=== PATIENT | female | born 1930 | race Caucasian/White ===

== ENCOUNTER 2018-12-21 09:52 | Day surgery (SDC) | payer MEDICARE, BC ==
[2018-12-20 11:01] LABS: ALBUMIN 3.1 G/DL (3.4-5.0); ANION GAP 6 (8-16); BLOOD UREA NITROGEN 14 MG/DL (7-18); BUN/CREATININE RATIO 18.9 (6.6-38.0); CALCIUM 9.1 MG/DL (8.5-10.1); CHLORIDE 99 MMOL/L (99-107); CREATININE 0.74 MG/DL (0.40-0.90); GLUCOSE 96 MG/DL (70-104); POTASSIUM 3.8 MMOL/L (3.5-5.1); SODIUM 135 MMOL/L (135-145); TOTAL CARBON DIOXIDE 29.8 MMOL/L (24-32); eGFR 74 ML/MIN
[2018-12-20 11:03] LABS: BASOPHILS # (AUTO) 0.1 X10'3 (0-0.2); BASOPHILS % (AUTO) 0.6 % (0-1); EOSINOPHILS # (AUTO) 0.2 X10'3 (0-0.9); EOSINOPHILS % (AUTO) 1.4 % (0-6); HEMATOCRIT 39.5 % (35.0-45.0); HEMOGLOBIN 13.1 g/dl (12.0-16.0); LYMPHOCYTES # (AUTO) 2.4 X10'3 (1.1-4.8); MEAN CORPUSCULAR HEMOGLOBIN 30.8 PG (27.0-31.0); MEAN CORPUSCULAR HGB CONC 33.2 g/dL (33.0-36.5); MEAN CORPUSCULAR VOLUME 92.6 FL (78-98); MEAN PLATELET VOLUME 7.3 FL (7.4-10.4); MONOCYTES # (AUTO) 0.8 X10'3 (0-0.9); MONOCYTES % (AUTO) 7.2 % (2-12); NEUTROPHILS # (AUTO) 7.4 X10'3 (1.8-7.7); NEUTROPHILS % (AUTO) 68.8 % (42-75); PLATELET COUNT 407 X10'3 (140-440); RED BLOOD COUNT 4.27 X10'6 (4.20-5.60); RED CELL DISTRIBUTION WIDTH 15.3 % (11.5-14.5); WHITE BLOOD COUNT 10.8 X10'3 (4.5-11.0)
[2018-12-20 11:16] LABS: PARTIAL THROMBOPLASTIN TIME 28 SECONDS (22-32); PROTHROMBIN TIME 10.2 SECONDS (9.0-12.0)
[2018-12-21] VITALS (10 sets, daily range): BP systolic 106–160; BP diastolic 45–72
[~2018-12-21] VITALS: Ht 157.5 cm; Wt 51.5 kg
[~2018-12-21 09:52] MED LIST: APIX5TAB3 PO; AZIT500T5 PO; BENZ-49 PO
[2018-12-21] MEDS ORDERED: cefazolin/dext.iso 2gm/100ml 100 ML IV ONE (10:30)
[2018-12-21] MEDS ORDERED: normal saline 1000ml 1,000 ML IV SCH (10:30)
[2018-12-21] MEDS ORDERED: ARFO15VI3 NEB (11:25)
[2018-12-21] MEDS ORDERED: OMEP20CA10 PO (11:25)
[2018-12-21] MEDS ORDERED: ENZY1CAP5 PO (11:25)
[2018-12-21] MEDS ORDERED: LEVO75TA7 PO (11:25)
[2018-12-21] MEDS ORDERED: ESTR0.5T PO (11:25)
[2018-12-21] MEDS ORDERED: CYAN-19 PO (11:25)
[2018-12-21] MEDS ORDERED: MELA1TAB25 PO (11:25)
[2018-12-21] MEDS ORDERED: SOTA80TA73 PO (11:25)
[2018-12-21] MEDS ORDERED: CLOP75TA33 PO (11:25)
[2018-12-21] MEDS ORDERED: OMEG-86 PO (11:25)
[2018-12-21] MEDS ORDERED: CALC1TAB2 PO (11:25)
[2018-12-21] MEDS ORDERED: MULT1TAB74 PO (11:25)
[2018-12-21] MEDS ORDERED: CRAN200C PO (11:25)
[2018-12-21] MEDS ORDERED: PROM25TA14 PO (11:34)
[2018-12-21] MEDS ORDERED: APIX5TAB3 PO ×2 (11:34→11:41)
[2018-12-21] MEDS ORDERED: lidocaine 1%/epinephrine 1:100,000 injection 50ml vial ONE (12:08)
[2018-12-21] MEDS ORDERED: fentaNYL/PF 50MCG/1 ML 2ML syringe ONE (12:08)
[2018-12-21] MEDS ORDERED: midazolam 2 mg/2 ml injection ONE (12:08)
[2018-12-21] MEDS ORDERED: ceFAZolin 1GM/D5W- ADD-VANTAGE 50 ML IV ONE (12:28)
[2018-12-21] MEDS ORDERED: ceFAZolin 1000mg inj ONE (12:28)
[2018-12-21] MEDS ORDERED: HYDROcodone/acetaminophen 10/325mg tab PO PRN (14:15)
[2018-12-21] MEDS ORDERED: HYDROcodone/acetaminophen 5mg/325mg tablet PO PRN (14:15)
== END 2018-12-21 19:00 | disposition home or self-care (01) ==
LOC: SSTAY O 09:52
PROVIDERS: ATTEND Internal Medicine Cardiovascular Disease
DX: I49.5 Sick sinus syndrome (principal); I48.0 Paroxysmal atrial fibrillation; I44.1 Atrioventricular block, second degree; R53.83 Other fatigue; R55 Syncope and collapse; Z98.890 Other specified postprocedural states
CPT/HCPCS: 33208; 36415; 71046; 80048; 85025; 85610; 85730; 93005; A6449; C1785; C1898; J0690; J2250; J3010; J3490; J7030; 99152; 99153; A4565; A4620

== ENCOUNTER 2018-12-25 10:23 | Outpatient (CLI) | payer MEDICARE, BC ==
[~2018-12-25 10:23] MED LIST changes: +ARFO15VI3 NEB; -AZIT500T5 PO; -BENZ-49 PO; +CALC1TAB2 PO; +CLOP75TA33 PO; +CRAN200C PO; +CYAN-19 PO; +ENZY1CAP5 PO; +ESTR0.5T PO; +LEVO75TA7 PO; +MELA1TAB25 PO; +MULT1TAB74 PO; +OMEG-86 PO; +OMEP20CA10 PO; +PROM25TA14 PO; +SOTA80TA73 PO
== END 2018-12-25 23:59 | disposition home or self-care (01) ==
LOC: RAD 10:23
PROVIDERS: ATTEND Internal Medicine Cardiovascular Disease
DX: J98.4 Other disorders of lung (principal); M85.88 Other specified disorders of bone density and structure, other site; J45.909 Unspecified asthma, uncomplicated; E07.9 Disorder of thyroid, unspecified; Z79.899 Other long term (current) drug therapy; Z87.891 Personal history of nicotine dependence; Z90.710 Acquired absence of both cervix and uterus
CPT/HCPCS: 71046

== ENCOUNTER 2018-12-29 18:23 | Emergency (ER) | payer MEDICARE, BC ==
[~2018-12-29] VITALS: Ht 160 cm; Wt 50.5 kg
[2018-12-29 19:36] LABS: BASOPHILS # (AUTO) 0.1 X10'3 (0-0.2); BASOPHILS % (AUTO) 1.2 % (0-1); EOSINOPHILS # (AUTO) 0.3 X10'3 (0-0.9); EOSINOPHILS % (AUTO) 2.8 % (0-6); HEMATOCRIT 37.3 % (35.0-45.0); HEMOGLOBIN 12.2 g/dl (12.0-16.0); LYMPHOCYTES # (AUTO) 1.9 X10'3 (1.1-4.8); LYMPHOCYTES % (AUTO) 21.2 % (21-51); MEAN CORPUSCULAR HEMOGLOBIN 30.3 PG (27.0-31.0); MEAN CORPUSCULAR HGB CONC 32.6 g/dL (33.0-36.5); MEAN CORPUSCULAR VOLUME 93.1 FL (78-98); MEAN PLATELET VOLUME 6.9 FL (7.4-10.4); MONOCYTES # (AUTO) 0.8 X10'3 (0-0.9); MONOCYTES % (AUTO) 8.8 % (2-12); PLATELET COUNT 395 X10'3 (140-440); RED BLOOD COUNT 4.01 X10'6 (4.20-5.60); RED CELL DISTRIBUTION WIDTH 14.7 % (11.5-14.5); WHITE BLOOD COUNT 9.1 X10'3 (4.5-11.0)
[2018-12-29 19:54] LABS: PARTIAL THROMBOPLASTIN TIME 29 SECONDS (22-32); PROTHROMBIN TIME 10.3 SECONDS (9.0-12.0)
[2018-12-29 19:56] LABS: CLARITY,URINE CLEAR (Clear); COLOR,URINE YELLOW (Yellow); GLUCOSE, URINE NEGATIVE (Neg); KETONES,URINE NEGATIVE (Neg); LEUKOCYTE ESTERASE ,URINE NEGATIVE (Neg); NITRITES, URINE NEGATIVE (Neg); OCCULT BLOOD,URINE TRACE-INTACT (Neg); PROTEIN,URINE NEGATIVE (Neg); UROBILINOGEN,URINE 0.2 E.U/dL (0.2-1.0)
[2018-12-29 19:56] LABS: ALANINE AMINOTRANSFERASE 14 U/L (12-78); ALBUMIN 2.8 G/DL (3.4-5.0); ALBUMIN/GLOBULIN RATIO 0.5 (1.1-1.5); ALKALINE PHOSPHATASE 70 IU/L (46-116); ANION GAP 6 (8-16); ASPARTATE AMINO TRANSFERASE 23 U/L (10-37); BILIRUBIN,TOTAL 0.2 MG/DL (0.1-1.0); BLOOD UREA NITROGEN 16 MG/DL (7-18); BUN/CREATININE RATIO 21.6 (6.6-38.0); CALCIUM 9.1 MG/DL (8.5-10.1); CHLORIDE 101 MMOL/L (99-107); CREATININE 0.74 MG/DL (0.40-0.90); GLUCOSE 122 MG/DL (70-104); POTASSIUM 4.3 MMOL/L (3.5-5.1); SODIUM 134 MMOL/L (135-145); TOTAL CARBON DIOXIDE 26.8 MMOL/L (24-32); eGFR 74 ML/MIN
[2018-12-29 20:02] LABS: UA COLLECTION TYPE CLN CATCH MIDSTREAM
[2018-12-29 20:03] LABS: BACTERIA,URINE NONE SEEN /HPF (Neg); RBC,URINE 0-2 /HPF (0-2); SQUAMOUS EPITHELIAL CELL,UR FEW /LPF (FEW); WBC,URINE NONE SEEN /HPF (0-4)
[2018-12-29] MEDS ORDERED: acetaminophen 325mg tablet PO ONE (20:20)
[2018-12-29] MEDS ORDERED: AZIT-72 PO (20:28)
[2018-12-29] MEDS ORDERED: azithromycin 250mg tablet PO ONE (20:30)
[2018-12-29 21:07] VITALS: BP 113/92
== END 2018-12-29 21:09 | disposition home or self-care (01) ==
LOC: ER 18:24
DX: J47.9 Bronchiectasis, uncomplicated (principal); R51 Headache; I48.91 Unspecified atrial fibrillation; Z95.0 Presence of cardiac pacemaker; Z86.73 Personal history of transient ischemic attack (TIA), and cerebral infarction without residual deficits; Z90.710 Acquired absence of both cervix and uterus; Z88.6 Allergy status to analgesic agent; Z88.8 Allergy status to other drugs, medicaments and biological substances; Z79.899 Other long term (current) drug therapy
CPT/HCPCS: 36415; 71045; 80053; 81001; 83605; 84145; 85025; 85610; 85730; 87040; 93005; 99284

== ENCOUNTER 2019-04-07 12:53 | Emergency (ER) | payer MEDICARE, BC ==
[~2019-04-07] VITALS: Ht 160 cm; Wt 48.0 kg
[~2019-04-07 12:53] MED LIST changes: -CYAN-19 PO; +CYAN-51 PO; -OMEP20CA10 PO; +OMEP20CA11 PO
[2019-04-07 14:01] LABS: BASOPHILS # (AUTO) 0.1 X10'3 (0-0.2); EOSINOPHILS # (AUTO) 0.3 X10'3 (0-0.9); EOSINOPHILS % (AUTO) 5.1 % (0-6); HEMATOCRIT 38.5 % (35.0-45.0); HEMOGLOBIN 12.9 g/dl (12.0-16.0); LYMPHOCYTES # (AUTO) 0.9 X10'3 (1.1-4.8); LYMPHOCYTES % (AUTO) 14.5 % (21-51); MEAN CORPUSCULAR HEMOGLOBIN 31.4 PG (27.0-31.0); MEAN CORPUSCULAR HGB CONC 33.5 g/dL (33.0-36.5); MEAN CORPUSCULAR VOLUME 93.7 FL (78-98); MONOCYTES # (AUTO) 0.5 X10'3 (0-0.9); MONOCYTES % (AUTO) 8.4 % (2-12); NEUTROPHILS # (AUTO) 4.6 X10'3 (1.8-7.7); PLATELET COUNT 259 X10'3 (140-440); RED BLOOD COUNT 4.11 X10'6 (4.20-5.60); WHITE BLOOD COUNT 6.5 X10'3 (4.5-11.0)
[2019-04-07 14:06] LABS: PARTIAL THROMBOPLASTIN TIME 27 SECONDS (22-32)
[2019-04-07 14:07] LABS: ALANINE AMINOTRANSFERASE 30 U/L (12-78); ALBUMIN 3.1 G/DL (3.4-5.0); ALBUMIN/GLOBULIN RATIO 0.6 (1.1-1.5); ALKALINE PHOSPHATASE 75 IU/L (46-116); ANION GAP 6 (8-16); ASPARTATE AMINO TRANSFERASE 24 U/L (10-37); BILIRUBIN,TOTAL 0.3 MG/DL (0.1-1.0); BLOOD UREA NITROGEN 22 MG/DL (7-18); BUN/CREATININE RATIO 25.6 (6.6-38.0); CHLORIDE 94 MMOL/L (99-107); CREATININE 0.86 MG/DL (0.40-0.90); GLUCOSE 112 MG/DL (70-104); POTASSIUM 4.9 MMOL/L (3.5-5.1); SODIUM 129 MMOL/L (135-145); TOTAL CARBON DIOXIDE 29.2 MMOL/L (24-32); TOTAL PROTEIN 8.1 G/DL (6.4-8.2); eGFR 63 ML/MIN
[2019-04-07] MEDS ORDERED: normal saline 1000ML IV soln IVB ONE (14:35)
[2019-04-07 15:15] LABS: CLARITY,URINE CLEAR (Clear); COLOR,URINE YELLOW (Yellow); GLUCOSE, URINE NEGATIVE (Neg); KETONES,URINE NEGATIVE (Neg); LEUKOCYTE ESTERASE ,URINE NEGATIVE (Neg); NITRITES, URINE NEGATIVE (Neg); OCCULT BLOOD,URINE TRACE-INTACT (Neg); PROTEIN,URINE NEGATIVE (Neg); UROBILINOGEN,URINE 0.2 E.U/dL (0.2-1.0)
[2019-04-07 15:16] LABS: UA COLLECTION TYPE STRAIGHT CATH
[2019-04-07 15:38] LABS: BACTERIA,URINE NONE SEEN /HPF (Neg); MUCUS STRANDS FEW /LPF (Neg); RBC,URINE NONE SEEN /HPF (0-2); SQUAMOUS EPITHELIAL CELL,UR NONE SEEN /LPF (FEW); WBC,URINE NONE SEEN /HPF (0-4)
[2019-04-07 16:14] VITALS: BP 125/74
== END 2019-04-07 16:15 | disposition home or self-care (01) ==
LOC: ER 12:53
DX: R53.1 Weakness (principal); I48.91 Unspecified atrial fibrillation; I11.0 Hypertensive heart disease with heart failure; I50.9 Heart failure, unspecified; Z86.73 Personal history of transient ischemic attack (TIA), and cerebral infarction without residual deficits; Z90.710 Acquired absence of both cervix and uterus; Z95.0 Presence of cardiac pacemaker; Z88.6 Allergy status to analgesic agent; Z88.1 Allergy status to other antibiotic agents; Z88.8 Allergy status to other drugs, medicaments and biological substances; Z79.899 Other long term (current) drug therapy
CPT/HCPCS: 36415; 71045; 80053; 81001; 84484; 85025; 85610; 85730; 93005; 99284; J7030; P9612

== ENCOUNTER 2019-04-19 06:00 | Day surgery (SDC) | payer MEDICARE, BC ==
[2019-04-18 16:54] LABS: ALBUMIN 2.9 G/DL (3.4-5.0); ANION GAP 5 (8-16); BLOOD UREA NITROGEN 26 MG/DL (7-18); BUN/CREATININE RATIO 28.3 (6.6-38.0); CHLORIDE 95 MMOL/L (99-107); CREATININE 0.92 MG/DL (0.40-0.90); GLUCOSE 102 MG/DL (70-104); POTASSIUM 4.5 MMOL/L (3.5-5.1); SODIUM 129 MMOL/L (135-145); TOTAL CARBON DIOXIDE 28.9 MMOL/L (24-32); eGFR 58 ML/MIN
[2019-04-18 16:56] LABS: BASOPHILS # (AUTO) 0.1 X10'3 (0-0.2); BASOPHILS % (AUTO) 1.4 % (0-1); EOSINOPHILS # (AUTO) 0.1 X10'3 (0-0.9); EOSINOPHILS % (AUTO) 2.1 % (0-6); HEMATOCRIT 36.5 % (35.0-45.0); LYMPHOCYTES # (AUTO) 1.9 X10'3 (1.1-4.8); LYMPHOCYTES % (AUTO) 28.8 % (21-51); MEAN CORPUSCULAR HEMOGLOBIN 30.8 PG (27.0-31.0); MEAN CORPUSCULAR VOLUME 93.5 FL (78-98); MEAN PLATELET VOLUME 6.8 FL (7.4-10.4); MONOCYTES # (AUTO) 0.5 X10'3 (0-0.9); MONOCYTES % (AUTO) 7.8 % (2-12); NEUTROPHILS # (AUTO) 3.9 X10'3 (1.8-7.7); NEUTROPHILS % (AUTO) 59.9 % (42-75); PLATELET COUNT 298 X10'3 (140-440); RED CELL DISTRIBUTION WIDTH 14.8 % (11.5-14.5); WHITE BLOOD COUNT 6.5 X10'3 (4.5-11.0)
[2019-04-18 16:57] LABS: PARTIAL THROMBOPLASTIN TIME 25 SECONDS (22-32)
[2019-04-19] VITALS (13 sets, daily range): BP systolic 97–122; BP diastolic 51–65
[~2019-04-19] VITALS: Ht 157.5 cm; Wt 49.7 kg
[2019-04-19] MEDS ORDERED: nitroGLYCERIN-Tridil 50MG/D5W 250 ML IV ONE (07:34)
[2019-04-19] MEDS ORDERED: verapamil 2.5 mg/ml inj IV ONE (07:34)
[2019-04-19] MEDS ORDERED: LIDOcaine 1% (10mg/ml)w/preservative injection 20ml MDV ONE (07:35)
[2019-04-19] MEDS ORDERED: fentaNYL/PF 50MCG/1 ML 2ML syringe ONE (07:35)
[2019-04-19] MEDS ORDERED: iohexol 350 MG/ML 50ML vial IV ONE (07:35)
[2019-04-19] MEDS ORDERED: midazolam 2 mg/2 ml injection ONE (07:35)
[2019-04-19] MEDS ORDERED: LEVO100T PO (07:35)
[2019-04-19] MEDS ORDERED: heparin 1,000unit/ml 10ml vial 10 ML ONE (07:35)
[2019-04-19] MEDS ORDERED: iohexol 350MG/ML 100ml bottle IV ONE ×2 (07:35→08:47)
[2019-04-19] MEDS ORDERED: CITA20TA19 PO (07:38)
[2019-04-19] MEDS ORDERED: GUAI600T45 PO (07:42)
[2019-04-19] MEDS ORDERED: AMIO200T54 PO (07:44)
[2019-04-19] MEDS ORDERED: FURO-150 PO (07:45)
[2019-04-19] MEDS ORDERED: CARV-49 PO (07:45)
[2019-04-19] MEDS ORDERED: LISI2.5T2 PO (07:46)
[2019-04-19] MEDS ORDERED: MAGN500C16 PO (07:47)
[2019-04-19] MEDS ORDERED: FLUT1DIS INH (07:47)
[2019-04-19] MEDS ORDERED: SPIR25TA5 PO (07:48)
[2019-04-19] MEDS ORDERED: heparin 25,000 UNIT/250ml bag 250 ML IV ONE (08:46)
[2019-04-19] MEDS ORDERED: ticagrelor 90mg tablet ONE (09:03)
[2019-04-19] MEDS ORDERED: clopidogrel 300mg tablet ONE (09:10)
[2019-04-19] MEDS ORDERED: acetaminophen 325mg tablet PO PRN (14:30)
== END 2019-04-19 17:00 | disposition home or self-care (01) ==
LOC: SSTAY O 06:00
PROVIDERS: ATTEND Internal Medicine Cardiovascular Disease
DX: I25.10 Atherosclerotic heart disease of native coronary artery without angina pectoris (principal); I42.9 Cardiomyopathy, unspecified; I49.5 Sick sinus syndrome; I48.91 Unspecified atrial fibrillation; E78.5 Hyperlipidemia, unspecified; Z95.0 Presence of cardiac pacemaker
CPT/HCPCS: 36415; 80048; 85025; 85347; 85610; 85730; 93005; 93458; 99152; 99153; C1725; C1769; C1874; C1894; C9600; J1644; J2001; J2250; J3010; Q9967; A4620; A6258; J3490

== ENCOUNTER 2019-05-06 20:14 | Emergency (ER) | payer MEDICARE, BC ==
[~2019-05-06] VITALS: Ht 157.5 cm; Wt 49.2 kg
[~2019-05-06 20:14] MED LIST changes: +AMIO200T54 PO; -ARFO15VI3 NEB; -CALC1TAB2 PO; +CARV-49 PO; +CITA20TA19 PO; -CLOP75TA33 PO; -CRAN200C PO; -CYAN-51 PO; -ENZY1CAP5 PO; -ESTR0.5T PO; +FLUT1DIS INH; +FURO-150 PO; +GUAI600T45 PO; +LEVO100T PO; -LEVO75TA7 PO; +LISI2.5T2 PO; +MAGN500C16 PO; -OMEG-86 PO; -OMEP20CA11 PO; -PROM25TA14 PO; -SOTA80TA73 PO; +SPIR25TA5 PO
[2019-05-06 20:18] VITALS: BP 126/66
[2019-05-06] MEDS ORDERED: LIDOcaine 1% w/epiNEPHrine 1:200,000 30ml vial IM ONE (20:30)
[2019-05-06] MEDS ORDERED: tranexamic acid 100mg/ml inj. TP ONE (20:30)
[2019-05-06] MEDS ORDERED: TETanus/Pertussis (Acell)/Diphther VAC/PF (Tdap-Adult) 0.5ml syringe IM ONE (20:30)
== END 2019-05-06 21:13 | disposition home or self-care (01) ==
LOC: ER 20:14
DX: S01.512A Laceration without foreign body of oral cavity, initial encounter (principal); I11.0 Hypertensive heart disease with heart failure; I50.9 Heart failure, unspecified; I48.91 Unspecified atrial fibrillation; Z86.73 Personal history of transient ischemic attack (TIA), and cerebral infarction without residual deficits; Z90.710 Acquired absence of both cervix and uterus; Z95.0 Presence of cardiac pacemaker; Z88.1 Allergy status to other antibiotic agents; Z88.6 Allergy status to analgesic agent; Z88.8 Allergy status to other drugs, medicaments and biological substances; Z79.899 Other long term (current) drug therapy; X58.XXXA Exposure to other specified factors, initial encounter; Y93.89 Activity, other specified; Y92.89 Other specified places as the place of occurrence of the external cause; Y99.8 Other external cause status
CPT/HCPCS: 41250; 99284

== ENCOUNTER 2020-01-12 13:14 | Emergency (ER) | payer MEDICARE, BC ==
[~2020-01-12] VITALS: Ht 157.5 cm; Wt 48.6 kg
[~2020-01-12 13:14] MED LIST changes: -AMIO200T54 PO; +AMIO200T62 PO
[2020-01-12] MEDS ORDERED: normal saline 1000ML IV soln IVB ONE (13:20)
[2020-01-12 14:20] LABS: BASOPHILS # (AUTO) 0.1 X10'3 (0-0.2); BASOPHILS % (AUTO) 0.8 % (0-1); EOSINOPHILS # (AUTO) 0.1 X10'3 (0-0.9); EOSINOPHILS % (AUTO) 1.6 % (0-6); HEMATOCRIT 36.9 % (35.0-45.0); LYMPHOCYTES # (AUTO) 1.6 X10'3 (1.1-4.8); LYMPHOCYTES % (AUTO) 22.3 % (21-51); MEAN CORPUSCULAR HEMOGLOBIN 29.8 PG (27.0-31.0); MEAN CORPUSCULAR HGB CONC 32.5 g/dL (33.0-36.5); MEAN CORPUSCULAR VOLUME 91.6 FL (78-98); MEAN PLATELET VOLUME 6.9 FL (7.4-10.4); MONOCYTES # (AUTO) 0.5 X10'3 (0-0.9); MONOCYTES % (AUTO) 6.9 % (2-12); NEUTROPHILS # (AUTO) 4.8 X10'3 (1.8-7.7); NEUTROPHILS % (AUTO) 68.4 % (42-75); PLATELET COUNT 384 X10'3 (140-440); RED BLOOD COUNT 4.02 X10'6 (4.20-5.60); RED CELL DISTRIBUTION WIDTH 15.4 % (11.5-14.5)
[2020-01-12] MEDS ORDERED: HYDROcodone/acetaminophen 5mg/325mg tablet PO ONE (14:30)
[2020-01-12 14:33] LABS: ALANINE AMINOTRANSFERASE 40 U/L (12-78); ALBUMIN 3.3 G/DL (3.4-5.0); ALBUMIN/GLOBULIN RATIO 0.7 (1.1-1.5); ALKALINE PHOSPHATASE 85 IU/L (46-116); ANION GAP 5 (8-16); ASPARTATE AMINO TRANSFERASE 41 U/L (10-37); BILIRUBIN,TOTAL 0.3 MG/DL (0.1-1.0); CALCIUM 8.9 MG/DL (8.5-10.1); CHLORIDE 103 MMOL/L (99-107); CREATININE 0.93 MG/DL (0.40-0.90); GLUCOSE 94 MG/DL (70-104); POTASSIUM 4.4 MMOL/L (3.5-5.1); SODIUM 136 MMOL/L (135-145); TOTAL CARBON DIOXIDE 28.4 MMOL/L (24-32); TOTAL PROTEIN 8.3 G/DL (6.4-8.2); eGFR 57 ML/MIN
[2020-01-12 14:40] LABS: BLOOD UREA NITROGEN 20 MG/DL (7-18); BUN/CREATININE RATIO 21.5 (6.6-38.0)
[2020-01-12 14:40] LABS: CLARITY,URINE CLEAR (Clear); COLOR,URINE YELLOW (Yellow); GLUCOSE, URINE NEGATIVE (Neg); KETONES,URINE NEGATIVE (Neg); LEUKOCYTE ESTERASE ,URINE NEGATIVE (Neg); NITRITES, URINE NEGATIVE (Neg); OCCULT BLOOD,URINE NEGATIVE (Neg); PROTEIN,URINE NEGATIVE (Neg); UROBILINOGEN,URINE 0.2 E.U/dL (0.2-1.0)
[2020-01-12 14:41] LABS: UA COLLECTION TYPE STRAIGHT CATH
[2020-01-12] MEDS ORDERED: HYDR-4383 PO (14:59)
[2020-01-12 15:21] VITALS: BP 161/81
== END 2020-01-12 15:12 | disposition home or self-care (01) ==
LOC: ER 13:14
DX: S00.11XA Contusion of right eyelid and periocular area, initial encounter (principal); M54.5 Low back pain; M25.551 Pain in right hip; I48.91 Unspecified atrial fibrillation; I50.9 Heart failure, unspecified; I11.0 Hypertensive heart disease with heart failure; Z90.710 Acquired absence of both cervix and uterus; Z95.0 Presence of cardiac pacemaker; Z88.5 Allergy status to narcotic agent; Z88.2 Allergy status to sulfonamides; Z88.8 Allergy status to other drugs, medicaments and biological substances; Z79.01 Long term (current) use of anticoagulants; Z79.899 Other long term (current) drug therapy; W18.39XA Other fall on same level, initial encounter; Y93.89 Activity, other specified; Y92.008 Other place in unspecified non-institutional (private) residence as the place of occurrence of the external cause; Y99.8 Other external cause status
CPT/HCPCS: 36415; 70450; 70486; 72131; 72192; 80053; 81003; 85025; 93005; 99285; J7030

== ENCOUNTER 2020-02-08 07:29 | Emergency (ER) | payer MEDICARE, BC ==
[~2020-02-08] VITALS: Ht 157.5 cm; Wt 50.0 kg
[~2020-02-08 07:29] MED LIST changes: +HYDR-4383 PO
--- NOTE | 2020-02-08 08:17 | NUR ---
Discussed pt's c/o pain with little relief from ice pack application with jennifer Alvarez;new orders received for Enterprise 5/325mg PO.
[2020-02-08] MEDS ORDERED: HYDROcodone/acetaminophen 5mg/325mg tablet PO ONE (08:20)
--- NOTE | 2020-02-08 08:43 | NUR ---
pt assisted to bsc
[2020-02-08 09:34] VITALS: BP 134/67
[2020-02-08] MEDS ORDERED: HYDR-4383 PO (09:40)
== END 2020-02-08 10:21 | disposition home or self-care (01) ==
LOC: ER 07:30
DX: M54.5 Low back pain (principal); I48.91 Unspecified atrial fibrillation; I50.9 Heart failure, unspecified; I11.0 Hypertensive heart disease with heart failure; G89.29 Other chronic pain; Z86.73 Personal history of transient ischemic attack (TIA), and cerebral infarction without residual deficits; Z90.710 Acquired absence of both cervix and uterus; Z95.0 Presence of cardiac pacemaker; Z88.1 Allergy status to other antibiotic agents; Z88.5 Allergy status to narcotic agent; Z88.8 Allergy status to other drugs, medicaments and biological substances; Z79.01 Long term (current) use of anticoagulants; Z79.899 Other long term (current) drug therapy
CPT/HCPCS: 99284

== ENCOUNTER 2020-04-04 08:43 | Inpatient (IN) | payer MEDICARE, BC ==
[~2020-04-04] VITALS: Ht 157.5 cm; Wt 47.7 kg
[~2020-04-04 08:43] MED LIST changes: +MULT-620 PO; -MULT1TAB74 PO
[2020-04-04] MEDS ORDERED: normal saline 1000ML IV soln IV ONE (09:20)
--- NOTE | 2020-04-04 09:32 | NUR ---
FOSTER GARNER PHONE NUMBER [phone]
[2020-04-04 09:35] LABS: ALANINE AMINOTRANSFERASE 243 U/L (12-78); ALBUMIN 2.6 G/DL (3.4-5.0); ALBUMIN/GLOBULIN RATIO 0.6 (1.1-1.5); ALKALINE PHOSPHATASE 121 IU/L (46-116); ANION GAP 5 (8-16); ASPARTATE AMINO TRANSFERASE 200 U/L (10-37); BILIRUBIN,TOTAL 0.4 MG/DL (0.1-1.0); BLOOD UREA NITROGEN 30 MG/DL (7-18); BUN/CREATININE RATIO 24.6 (6.6-38.0); CALCIUM 8.1 MG/DL (8.5-10.1); CHLORIDE 102 MMOL/L (99-107); CREATININE 1.22 MG/DL (0.40-0.90); GLUCOSE 115 MG/DL (70-104); POTASSIUM 4.6 MMOL/L (3.5-5.1); SODIUM 133 MMOL/L (135-145); TOTAL CARBON DIOXIDE 25.6 MMOL/L (24-32); TOTAL PROTEIN 7.2 G/DL (6.4-8.2); eGFR 42 ML/MIN
[2020-04-04 09:57] LABS: BASOPHILS # (AUTO) 0.1 X10'3 (0-0.2); EOSINOPHILS # (AUTO) 0.1 X10'3 (0-0.9); EOSINOPHILS % (AUTO) 1.3 % (0-6); HEMATOCRIT 30.3 % (35.0-45.0); HEMOGLOBIN 9.7 g/dl (12.0-16.0); LYMPHOCYTES # (AUTO) 1.1 X10'3 (1.1-4.8); LYMPHOCYTES % (AUTO) 18.3 % (21-51); MEAN CORPUSCULAR HEMOGLOBIN 27.3 PG (27.0-31.0); MEAN CORPUSCULAR VOLUME 85.3 FL (78-98); MEAN PLATELET VOLUME 6.6 FL (7.4-10.4); MONOCYTES # (AUTO) 0.5 X10'3 (0-0.9); MONOCYTES % (AUTO) 7.8 % (2-12); NEUTROPHILS # (AUTO) 4.4 X10'3 (1.8-7.7); NEUTROPHILS % (AUTO) 71.6 % (42-75); PLATELET COUNT 379 X10'3 (140-440); RED BLOOD COUNT 3.55 X10'6 (4.20-5.60); RED CELL DISTRIBUTION WIDTH 16.1 % (11.5-14.5); WHITE BLOOD COUNT 6.2 X10'3 (4.5-11.0)
[2020-04-04 10:53] LABS: CLARITY,URINE SLIGHTLY CLOUDY (Clear); COLOR,URINE YELLOW (Yellow); GLUCOSE, URINE NEGATIVE (Neg); KETONES,URINE NEGATIVE (Neg); LEUKOCYTE ESTERASE ,URINE NEGATIVE (Neg); NITRITES, URINE NEGATIVE (Neg); OCCULT BLOOD,URINE NEGATIVE (Neg); PROTEIN,URINE NEGATIVE (Neg); UROBILINOGEN,URINE 0.2 E.U/dL (0.2-1.0)
[2020-04-04 10:55] LABS: UA COLLECTION TYPE CLN CATCH MIDSTREAM
[2020-04-04 11:17] LABS: SQUAMOUS EPITHELIAL CELL,UR FEW /LPF (FEW)
[2020-04-04 11:18] LABS: BACTERIA,URINE 3+ /HPF (Neg); RBC,URINE 0-2 /HPF (0-2)
[2020-04-04] MEDS ORDERED: potassium CL 10mEq/100ml bag 100 ML IV PRN ×2 (12:20)
[2020-04-04] MEDS ORDERED: magnesium Cl slow-release 64mg tablet PO PRN (12:20)
[2020-04-04] MEDS ORDERED: magnesium hydroxide 30ml (MOM) UD suspension PO PRN (12:20)
[2020-04-04] MEDS ORDERED: docusate sod 100mg capsule PO PRN (12:20)
[2020-04-04] MEDS ORDERED: ondansetron/PF 4mg/2ml inj IV PRN (12:20)
[2020-04-04] MEDS ORDERED: potassium Cl 20 mEq SR tablet PO PRN ×2 (12:20)
[2020-04-04] MEDS ORDERED: magnesium 4gm in 100ml NS 100 ML IV PRN (12:20)
[2020-04-04] MEDS ORDERED: magnesium 2GM in 50ml NS 50 ML IV PRN (12:20)
[2020-04-04] MEDS ORDERED: acetaminophen 325mg tablet PO PRN (12:20)
--- NOTE | 2020-04-04 12:34 | NUR ---
MARIOLA DUMONT [phone]
[2020-04-04] MEDS ORDERED: ROSU10TA28 PO (12:48)
[2020-04-04] MEDS ORDERED: CLOP75TA35 PO (12:48)
[2020-04-04] MEDS ORDERED: BUDE0.5A3 PO (12:48)
[2020-04-04] MEDS ORDERED: LORA10TA7 PO (12:48)
[2020-04-04] MEDS ORDERED: CYAN100010 PO (12:51)
[2020-04-04] MEDS ORDERED: CALC-97 PO (12:51)
[2020-04-04] MEDS ORDERED: ASPI-611 PO (12:51)
--- NOTE | 2020-04-04 13:25 | NUR ---
Received report from Joyce WIGIGNS, allowed time to ask questions and assume care. Patient brought up by Carlito WIGGINS. 2 RN skin check completed. MRSA swab completed. VS read: 130/76, 99% on RA, 97.6, 107 HR, 16 Respirations.
[2020-04-04] MEDS: normal saline 1000ml 1,000 ML IV SCH (14:28)
[2020-04-04 15:00] VITALS: BP 131/64
--- NOTE | 2020-04-04 16:50 | NUR ---
notified. PAGER ID: [phone] MESSAGE: Re: Alina Dalton. [phone]. Can patient eat a solid dinner? or would you like her to have clear liquids for possible GI consult tomorrow? Shilpa Linda, #[phone].
[2020-04-04 18:00] VITALS: BP 91/60
--- NOTE | 2020-04-04 18:22 | NUR ---
Problems reprioritized. Patient report given, questions answered & plan of care reviewed with ROSALIE Matson.
--- NOTE | 2020-04-04 18:29 | NUR ---
Patient in room PCU 3017. I have received report from Shilpa WIGGINS and had the opportunity to ask questions and assume patient care.
[2020-04-04 20:00] VITALS: BP_SYST 123; BP_SYST 133; BP_SYST 141; BP_DIAS 55; BP_DIAS 62; BP_DIAS 72
[2020-04-04] MEDS: K and/or MAG REPLACEMENT MC SCH (20:00)
[2020-04-04] MEDS: pantoprazole 40 MG vial IV SCH (20:06)
[2020-04-04] MEDS: temazepam 15mg capsule PO PRN (20:06)
[2020-04-04 22:00] VITALS: BP 113/56
[2020-04-05] VITALS (7 sets, daily range): BP systolic 112–145; BP diastolic 54–75
[2020-04-05] MEDS: normal saline 1000ml 1,000 ML IV SCH ×2 (02:51→16:14)
[2020-04-05 06:02] LABS: BASOPHILS # (AUTO) 0.1 X10'3 (0-0.2); BASOPHILS % (AUTO) 1.1 % (0-1); EOSINOPHILS # (AUTO) 0.2 X10'3 (0-0.9); EOSINOPHILS % (AUTO) 2.5 % (0-6); HEMATOCRIT 28.4 % (35.0-45.0); HEMOGLOBIN 9.2 g/dl (12.0-16.0); LYMPHOCYTES # (AUTO) 1.6 X10'3 (1.1-4.8); LYMPHOCYTES % (AUTO) 23.7 % (21-51); MEAN CORPUSCULAR HEMOGLOBIN 27.4 PG (27.0-31.0); MEAN CORPUSCULAR HGB CONC 32.2 g/dL (33.0-36.5); MEAN CORPUSCULAR VOLUME 85.2 FL (78-98); MEAN PLATELET VOLUME 6.8 FL (7.4-10.4); MONOCYTES # (AUTO) 0.6 X10'3 (0-0.9); MONOCYTES % (AUTO) 8.8 % (2-12); NEUTROPHILS # (AUTO) 4.4 X10'3 (1.8-7.7); NEUTROPHILS % (AUTO) 63.9 % (42-75); PLATELET COUNT 364 X10'3 (140-440); RED BLOOD COUNT 3.34 X10'6 (4.20-5.60); RED CELL DISTRIBUTION WIDTH 15.5 % (11.5-14.5); WHITE BLOOD COUNT 6.9 X10'3 (4.5-11.0)
--- NOTE | 2020-04-05 06:25 | NUR ---
Patient in room PCU 3017. I have received report from Huyen WIGGINS, and had the opportunity to ask questions and assume patient care.
[2020-04-05 06:26] LABS: ALANINE AMINOTRANSFERASE 237 U/L (12-78); ALBUMIN 2.4 G/DL (3.4-5.0); ALBUMIN/GLOBULIN RATIO 0.6 (1.1-1.5); ALKALINE PHOSPHATASE 115 IU/L (46-116); ANION GAP 8 (8-16); ASPARTATE AMINO TRANSFERASE 184 U/L (10-37); BILIRUBIN,TOTAL 0.4 MG/DL (0.1-1.0); BLOOD UREA NITROGEN 19 MG/DL (7-18); CALCIUM 7.8 MG/DL (8.5-10.1); CHLORIDE 110 MMOL/L (99-107); CREATININE 0.95 MG/DL (0.40-0.90); GLUCOSE 80 MG/DL (70-104); POTASSIUM 4.3 MMOL/L (3.5-5.1); SODIUM 141 MMOL/L (135-145); TOTAL CARBON DIOXIDE 23.4 MMOL/L (24-32); TOTAL PROTEIN 6.7 G/DL (6.4-8.2); eGFR 56 ML/MIN
--- NOTE | 2020-04-05 06:32 | NUR ---
Problems reprioritized. Patient report given, questions answered & plan of care reviewed with Shilpa WIGGINS.
[2020-04-05] MEDS: pantoprazole 40 MG vial IV SCH (07:38)
[2020-04-05] MEDS: K and/or MAG REPLACEMENT MC SCH ×2 (08:00→20:00)
[2020-04-05] MEDS: CefTRIAXone inj 2,000 MG in normal saline 100ml IV soln 100 ML IV SCH (08:29)
[2020-04-05] MEDS: acetaminophen 325mg tablet PO PRN ×3 (08:29→20:56)
[2020-04-05 13:44] LABS: % IRON SATURATION 8 % (11-46); IRON 28 UG/DL (49-151); TOTAL IRON BINDING CAPACITY 340 UG/DL (259-388)
--- NOTE | 2020-04-05 14:30 | NUR ---
Problems reprioritized. Patient report given, questions answered & plan of care reviewed with Harrison and Ajith Guzman.
[2020-04-05 14:46] LABS: BASOPHILS # (AUTO) 0.1 X10'3 (0-0.2); BASOPHILS % (AUTO) 1.2 % (0-1); EOSINOPHILS # (AUTO) 0.1 X10'3 (0-0.9); EOSINOPHILS % (AUTO) 1.3 % (0-6); HEMATOCRIT 29.6 % (35.0-45.0); HEMOGLOBIN 9.6 g/dl (12.0-16.0); LYMPHOCYTES # (AUTO) 1.6 X10'3 (1.1-4.8); LYMPHOCYTES % (AUTO) 21.6 % (21-51); MEAN CORPUSCULAR HEMOGLOBIN 27.2 PG (27.0-31.0); MEAN CORPUSCULAR HGB CONC 32.4 g/dL (33.0-36.5); MEAN CORPUSCULAR VOLUME 84.1 FL (78-98); MEAN PLATELET VOLUME 6.5 FL (7.4-10.4); MONOCYTES # (AUTO) 0.6 X10'3 (0-0.9); MONOCYTES % (AUTO) 8.5 % (2-12); NEUTROPHILS # (AUTO) 4.9 X10'3 (1.8-7.7); NEUTROPHILS % (AUTO) 67.4 % (42-75); PLATELET COUNT 370 X10'3 (140-440); RED BLOOD COUNT 3.52 X10'6 (4.20-5.60); RED CELL DISTRIBUTION WIDTH 15.6 % (11.5-14.5); WHITE BLOOD COUNT 7.3 X10'3 (4.5-11.0)
--- NOTE | 2020-04-05 18:35 | NUR ---
Patient in room PCU 3017. I have received report from Harrison WIGGINS and had the opportunity to ask questions and assume patient care.
--- NOTE | 2020-04-05 18:40 | NUR ---
[place]rientee documentation: I have reviewed and agree with all interventions, assessments performed and documented by Thomas WIGGINS.
--- NOTE | 2020-04-05 18:41 | NUR ---
Problems reprioritized. Patient report given, questions answered & plan of care reviewed with Huyen WIGGINS.
[2020-04-05] MEDS ORDERED: budesonide 0.5mg/2ml UD nebule IH SCH (20:00)
[2020-04-05] MEDS: budesonide 0.5mg/2ml UD nebule IH SCH (20:36)
[2020-04-05] MEDS: lactobacillus rhamnosus 10,000 MMU CELLS/CAPSULE PO SCH (20:53)
[2020-04-05] MEDS: carvedilol 6.25mg tablet PO SCH (20:53)
[2020-04-05] MEDS: temazepam 15mg capsule PO PRN (20:54)
[2020-04-05] MEDS ORDERED: atorvastatin 20mg tablet PO SCH (21:00)
[2020-04-05] MEDS ORDERED: MELATONIN 1 MG PO SCH (21:00)
[2020-04-06] VITALS (8 sets, daily range): BP systolic 105–139; BP diastolic 62–72
[2020-04-06 06:15] LABS: BASOPHILS # (AUTO) 0.1 X10'3 (0-0.2); BASOPHILS % (AUTO) 1.1 % (0-1); EOSINOPHILS # (AUTO) 0.2 X10'3 (0-0.9); EOSINOPHILS % (AUTO) 2.6 % (0-6); HEMATOCRIT 30.5 % (35.0-45.0); HEMOGLOBIN 9.7 g/dl (12.0-16.0); LYMPHOCYTES # (AUTO) 1.2 X10'3 (1.1-4.8); LYMPHOCYTES % (AUTO) 17.2 % (21-51); MEAN CORPUSCULAR HGB CONC 31.8 g/dL (33.0-36.5); MEAN CORPUSCULAR VOLUME 84.9 FL (78-98); MEAN PLATELET VOLUME 6.9 FL (7.4-10.4); MONOCYTES # (AUTO) 0.6 X10'3 (0-0.9); MONOCYTES % (AUTO) 8.3 % (2-12); NEUTROPHILS % (AUTO) 70.8 % (42-75); PLATELET COUNT 372 X10'3 (140-440); RED CELL DISTRIBUTION WIDTH 15.8 % (11.5-14.5); WHITE BLOOD COUNT 7.1 X10'3 (4.5-11.0)
[2020-04-06 06:20] LABS: ALANINE AMINOTRANSFERASE 245 U/L (12-78); ALBUMIN 2.4 G/DL (3.4-5.0); ALBUMIN/GLOBULIN RATIO 0.6 (1.1-1.5); ALKALINE PHOSPHATASE 117 IU/L (46-116); ANION GAP 6 (8-16); ASPARTATE AMINO TRANSFERASE 175 U/L (10-37); BILIRUBIN,TOTAL 0.4 MG/DL (0.1-1.0); BLOOD UREA NITROGEN 10 MG/DL (7-18); BUN/CREATININE RATIO 11.8 (6.6-38.0); CALCIUM 8.3 MG/DL (8.5-10.1); CHLORIDE 106 MMOL/L (99-107); CREATININE 0.85 MG/DL (0.40-0.90); GLUCOSE 76 MG/DL (70-104); MAGNESIUM 1.8 MG/DL (1.5-2.4); POTASSIUM 3.7 MMOL/L (3.5-5.1); SODIUM 139 MMOL/L (135-145); TOTAL CARBON DIOXIDE 26.6 MMOL/L (24-32); TOTAL PROTEIN 6.7 G/DL (6.4-8.2); eGFR 63 ML/MIN
--- NOTE | 2020-04-06 06:32 | NUR ---
Problems reprioritized. Patient report given, questions answered & plan of care reviewed with Arielle Marino.
--- NOTE | 2020-04-06 06:35 | NUR ---
Patient in room PCU 3017. I have received report from Huyen WIGGINS and had the opportunity to ask questions and assume patient care.
[2020-04-06] MEDS ORDERED: pantoprazole 40mg Tablet.DR PO SCH (07:30)
[2020-04-06] MEDS: CefTRIAXone inj 2,000 MG in normal saline 100ml IV soln 100 ML IV SCH (07:53)
[2020-04-06] MEDS: normal saline 1000ml 1,000 ML IV SCH (07:53)
[2020-04-06] MEDS: carvedilol 6.25mg tablet PO SCH (07:54)
[2020-04-06] MEDS: lactobacillus rhamnosus 10,000 MMU CELLS/CAPSULE PO SCH (07:55)
[2020-04-06] MEDS: K and/or MAG REPLACEMENT MC SCH (07:56)
[2020-04-06] MEDS ORDERED: loratadine 10mg tablet PO SCH (08:00)
[2020-04-06] MEDS ORDERED: magnesium oxide 400mg tablet PO SCH (08:00)
[2020-04-06] MEDS ORDERED: citalopram 20mg tablet PO SCH (08:00)
[2020-04-06] MEDS ORDERED: lisinopril 2.5mg tablet PO SCH (08:00)
[2020-04-06] MEDS ORDERED: levoTHYROXINE 100mcg tablet PO SCH (08:00)
[2020-04-06] MEDS: budesonide 0.5mg/2ml UD nebule IH SCH (10:26)
--- NOTE | 2020-04-06 11:03 | NUR ---
Memo Camara PAGER ID: [phone] MESSAGE: Patient Sha [phone]. Very anxious wants to leave AMA. Wants to eat. NPO since 0000 for EGD today, is that happening or can I feed her? Please advise. Arielle Maxwell [phone]
--- NOTE | 2020-04-06 11:24 | NUR ---
PAGER ID: [phone] MESSAGE: Patient Sha [phone]. GI lab won't be in today, can I feed her until midnight and she can go NPO at midnight tonight? [facility] [phone]
[2020-04-06] MEDS ORDERED: LIDOcaine Viscous 15ml cup ONE (12:33)
[2020-04-06] MEDS ORDERED: MIDAZolam 5mg/5ml vial ONE (12:33)
[2020-04-06] MEDS ORDERED: fentaNYL/PF 50MCG/1 ML 2ML syringe ONE (12:33)
--- NOTE | 2020-04-06 14:20 | NUR ---
Memo Camara PAGER ID: [phone] MESSAGE: Patient Sha [phone]. Patient finished EDG and is now going AMA. She will f/u with her primary, per patient. Thx. Guzmán [facility] [phone]
--- NOTE | 2020-04-06 14:57 | NUR ---
Patient left AMA. Doctor notified, signed form in chart.
[2020-04-08 13:05] LABS: OCCULT BLOOD STOOL POSITIVE (Neg)
== END 2020-04-06 14:42 | disposition left against medical advice (07) | DRG 377 ==
LOC: ER 08:43 → ED HOLD 12:18 → EDBEDREQ 12:41 → PCU 3S 13:26
PROVIDERS: ADMIT Internal Medicine; ATTEND Internal Medicine
PROC: 0DB78ZX Excision of Stomach, Pylorus, Via Natural or Artificial Opening Endoscopic, Diagnostic (ICD-10-PCS; principal; 2020-04-06)
DX: K92.2 Gastrointestinal hemorrhage, unspecified (principal); N17.0 Acute kidney failure with tubular necrosis; N39.0 Urinary tract infection, site not specified; I50.32 Chronic diastolic (congestive) heart failure; I48.20 Chronic atrial fibrillation, unspecified; G89.4 Chronic pain syndrome; I11.0 Hypertensive heart disease with heart failure; E87.6 Hypokalemia; D64.9 Anemia, unspecified; M54.9 Dorsalgia, unspecified; E03.9 Hypothyroidism, unspecified; I25.10 Atherosclerotic heart disease of native coronary artery without angina pectoris; Z95.0 Presence of cardiac pacemaker; Z88.5 Allergy status to narcotic agent; Z88.6 Allergy status to analgesic agent; Z88.8 Allergy status to other drugs, medicaments and biological substances; Z79.899 Other long term (current) drug therapy; Z79.891 Long term (current) use of opiate analgesic; Z79.82 Long term (current) use of aspirin; Z79.01 Long term (current) use of anticoagulants; Z95.5 Presence of coronary angioplasty implant and graft; Z80.41 Family history of malignant neoplasm of ovary
CPT/HCPCS: 36415; 43239; 43244; 70450; 71045; 76700; 80053; 81001; 82272; 83520; 83540; 83550; 83605; 83735; 83880; 84145; 84443; 84484; 85025; 85379; 85610; 87040; 87077; 87081; 87088; 88305; 88342; 93005; 93306; 93880; 94640; 94760; 97110; 97116; 97162; 99152; 99285; A4620; C9113; G0378; J0696; J2250; J3010; J7030; J7040; J7626

== ENCOUNTER 2020-05-28 15:19 | Emergency (ER) | payer MEDICARE, BC ==
[~2020-05-28] VITALS: Ht 157.5 cm; Wt 46.8 kg
[~2020-05-28 15:19] MED LIST changes: +ASPI-611 PO; +BUDE0.5A3 PO; +CALC-97 PO; +CLOP75TA35 PO; +CYAN100010 PO; -FLUT1DIS INH; -FURO-150 PO; -HYDR-4383 PO; +LORA10TA7 PO; -MULT-620 PO; +ROSU10TA28 PO
[2020-05-28] MEDS ORDERED: normal saline 1000ML IV soln IV ONE (15:30)
[2020-05-28] MEDS ORDERED: pantoprazole IV 80 MG in normal saline 100ml IV soln 100 ML IV ONE (15:30)
[2020-05-28] MEDS ORDERED: pantoprazole 40 MG vial IV ONE ×2 (15:35→15:45)
[2020-05-28 16:08] LABS: BASOPHILS # (AUTO) 0.1 X10'3 (0-0.2); BASOPHILS % (AUTO) 1.3 % (0-1); EOSINOPHILS # (AUTO) 0.1 X10'3 (0-0.9); EOSINOPHILS % (AUTO) 1.4 % (0-6); HEMATOCRIT 32.9 % (35.0-45.0); HEMOGLOBIN 10.6 g/dl (12.0-16.0); LYMPHOCYTES # (AUTO) 1.6 X10'3 (1.1-4.8); LYMPHOCYTES % (AUTO) 19.5 % (21-51); MEAN CORPUSCULAR HEMOGLOBIN 26.9 PG (27.0-31.0); MEAN CORPUSCULAR HGB CONC 32.3 g/dL (33.0-36.5); MEAN CORPUSCULAR VOLUME 83.2 FL (78-98); MEAN PLATELET VOLUME 6.9 FL (7.4-10.4); MONOCYTES # (AUTO) 0.5 X10'3 (0-0.9); MONOCYTES % (AUTO) 6.9 % (2-12); NEUTROPHILS # (AUTO) 5.6 X10'3 (1.8-7.7); NEUTROPHILS % (AUTO) 70.9 % (42-75); PLATELET COUNT 385 X10'3 (140-440); RED BLOOD COUNT 3.96 X10'6 (4.20-5.60)
[2020-05-28 16:26] LABS: ALANINE AMINOTRANSFERASE 64 U/L (12-78); ALBUMIN 2.9 G/DL (3.4-5.0); ALBUMIN/GLOBULIN RATIO 0.6 (1.1-1.5); ALKALINE PHOSPHATASE 107 IU/L (46-116); ANION GAP 6 (8-16); ASPARTATE AMINO TRANSFERASE 63 U/L (10-37); BILIRUBIN,TOTAL 0.4 MG/DL (0.1-1.0); BLOOD UREA NITROGEN 25 MG/DL (7-18); BUN/CREATININE RATIO 23.8 (6.6-38.0); CALCIUM 8.6 MG/DL (8.5-10.1); CHLORIDE 102 MMOL/L (99-107); CREATININE 1.05 MG/DL (0.40-0.90); GLUCOSE 89 MG/DL (70-104); POTASSIUM 4.5 MMOL/L (3.5-5.1); SODIUM 134 MMOL/L (135-145); TOTAL CARBON DIOXIDE 26.2 MMOL/L (24-32); eGFR 50 ML/MIN
--- NOTE | 2020-05-28 16:38 | NUR ---
DAUGHTER AT BEDSIDE,CALL LIGHT WITHIN REACH.
[2020-05-28] MEDS ORDERED: iohexol 350MG/ML 100ml bottle IV ONE (17:03)
[2020-05-28 17:11] LABS: COLOR,URINE YELLOW (Yellow); GLUCOSE, URINE NEGATIVE (Neg); KETONES,URINE NEGATIVE (Neg); LEUKOCYTE ESTERASE ,URINE NEGATIVE (Neg); NITRITES, URINE NEGATIVE (Neg); OCCULT BLOOD,URINE NEGATIVE (Neg); PH,URINE 6.5 (4.8-8.0); PROTEIN,URINE NEGATIVE (Neg); UROBILINOGEN,URINE 0.2 E.U/dL (0.2-1.0)
[2020-05-28 17:15] LABS: UA COLLECTION TYPE STRAIGHT CATH
[2020-05-28 17:16] LABS: CLARITY,URINE SLIGHTLY CLOUDY (Clear)
[2020-05-28 17:17] LABS: BACTERIA,URINE FEW /HPF (Neg); MUCUS STRANDS MANY /LPF (Neg); RBC,URINE NONE SEEN /HPF (0-2); SQUAMOUS EPITHELIAL CELL,UR FEW /LPF (FEW)
[2020-05-28 17:45] LABS: ANISOCYTOSIS 3+; PLATELET ESTIMATE NORMAL
[2020-05-28 17:46] LABS: TARGET CELLS FEW
[2020-05-28 17:47] LABS: ELLIPTOCYTES FEW; HYPOCHROMASIA 3+; MICROCYTOSIS FEW
[2020-05-28 17:48] LABS: LARGE PLATELETS FEW
[2020-05-29 04:43] VITALS: BP 136/78
== END 2020-05-28 19:20 | disposition home or self-care (01) ==
LOC: ER 15:20
DX: E86.0 Dehydration (principal); R42 Dizziness and giddiness; R53.1 Weakness; R06.02 Shortness of breath; I48.91 Unspecified atrial fibrillation; I11.0 Hypertensive heart disease with heart failure; I50.9 Heart failure, unspecified; G89.29 Other chronic pain; Z86.14 Personal history of Methicillin resistant Staphylococcus aureus infection; Z90.710 Acquired absence of both cervix and uterus; Z95.0 Presence of cardiac pacemaker; Z88.1 Allergy status to other antibiotic agents; Z88.6 Allergy status to analgesic agent; Z88.8 Allergy status to other drugs, medicaments and biological substances; Z79.82 Long term (current) use of aspirin; Z79.899 Other long term (current) drug therapy
CPT/HCPCS: 36415; 71045; 71275; 80053; 81001; 82140; 85008; 85025; 85610; 86885; 86900; 86901; 87088; 93005; 96361; 96374; 99285; C9113; J7030; Q9967; 87077

== ENCOUNTER 2020-06-12 10:30 | Emergency (ER) | payer MEDICARE, BC ==
[~2020-06-12] VITALS: Ht 157.5 cm; Wt 47.7 kg
[~2020-06-12 10:30] MED LIST changes: +AMOX-580 PO; -BUDE0.5A3 PO; +CHOL100046 PO; -GUAI600T45 PO; +IRON150C5 PO; -LISI2.5T2 PO; -LORA10TA7 PO; -MELA1TAB25 PO; +OMEP-271 PO
[2020-06-12 12:00] LABS: BASOPHILS # (AUTO) 0.1 X10'3 (0-0.2); BASOPHILS % (AUTO) 1.4 % (0-1); EOSINOPHILS # (AUTO) 0.1 X10'3 (0-0.9); EOSINOPHILS % (AUTO) 1.1 % (0-6); HEMATOCRIT 35.6 % (35.0-45.0); HEMOGLOBIN 11.5 g/dl (12.0-16.0); LYMPHOCYTES # (AUTO) 1.2 X10'3 (1.1-4.8); LYMPHOCYTES % (AUTO) 18.6 % (21-51); MEAN CORPUSCULAR HEMOGLOBIN 27.8 PG (27.0-31.0); MEAN CORPUSCULAR HGB CONC 32.4 g/dL (33.0-36.5); MONOCYTES # (AUTO) 0.4 X10'3 (0-0.9); MONOCYTES % (AUTO) 6.7 % (2-12); NEUTROPHILS # (AUTO) 4.6 X10'3 (1.8-7.7); NEUTROPHILS % (AUTO) 72.2 % (42-75); PLATELET COUNT 330 X10'3 (140-440); RED BLOOD COUNT 4.13 X10'6 (4.20-5.60); WHITE BLOOD COUNT 6.5 X10'3 (4.5-11.0)
[2020-06-12 12:13] LABS: ALANINE AMINOTRANSFERASE 167 U/L (12-78); ALBUMIN 2.9 G/DL (3.4-5.0); ALBUMIN/GLOBULIN RATIO 0.6 (1.1-1.5); ALKALINE PHOSPHATASE 99 IU/L (46-116); ANION GAP 6 (8-16); ASPARTATE AMINO TRANSFERASE 187 U/L (10-37); BILIRUBIN,TOTAL 0.4 MG/DL (0.1-1.0); BLOOD UREA NITROGEN 16 MG/DL (7-18); BUN/CREATININE RATIO 16.2 (6.6-38.0); CALCIUM 8.6 MG/DL (8.5-10.1); CHLORIDE 99 MMOL/L (99-107); CREATININE 0.99 MG/DL (0.40-0.90); GLUCOSE 81 MG/DL (70-104); POTASSIUM 3.8 MMOL/L (3.5-5.1); SODIUM 134 MMOL/L (135-145); TOTAL CARBON DIOXIDE 29.4 MMOL/L (24-32); TOTAL PROTEIN 7.8 G/DL (6.4-8.2); eGFR 53 ML/MIN
[2020-06-12 12:16] LABS: TROPONIN I < 0.04 NG/ML (0.0-0.05)
[2020-06-12 12:26] LABS: ANISOCYTOSIS 3+
[2020-06-12 12:27] LABS: HYPOCHROMASIA 1+
[2020-06-12 12:29] LABS: TARGET CELLS FEW
[2020-06-12 12:30] LABS: PLATELET ESTIMATE NORMAL; POLYCHROMASIA FEW
[2020-06-12 13:29] LABS: CLARITY,URINE CLEAR (Clear); COLOR,URINE STRAW (Yellow); GLUCOSE, URINE NEGATIVE (Neg); KETONES,URINE NEGATIVE (Neg); LEUKOCYTE ESTERASE ,URINE NEGATIVE (Neg); NITRITES, URINE NEGATIVE (Neg); OCCULT BLOOD,URINE NEGATIVE (Neg); PROTEIN,URINE NEGATIVE (Neg); UROBILINOGEN,URINE 0.2 E.U/dL (0.2-1.0)
[2020-06-12 13:36] LABS: UA COLLECTION TYPE STRAIGHT CATH
[2020-06-12] MEDS ORDERED: AZIT500T9 PO (14:11)
[2020-06-12 14:23] VITALS: BP 121/51
== END 2020-06-12 14:25 | disposition home or self-care (01) ==
LOC: ER 10:30
DX: J18.9 Pneumonia, unspecified organism (principal); R53.1 Weakness; R51 Headache; I48.91 Unspecified atrial fibrillation; I50.9 Heart failure, unspecified; I11.0 Hypertensive heart disease with heart failure; G89.29 Other chronic pain; Z86.73 Personal history of transient ischemic attack (TIA), and cerebral infarction without residual deficits; Z90.710 Acquired absence of both cervix and uterus; Z95.0 Presence of cardiac pacemaker; Z88.8 Allergy status to other drugs, medicaments and biological substances; Z79.899 Other long term (current) drug therapy; Z79.01 Long term (current) use of anticoagulants; Z79.82 Long term (current) use of aspirin; Z79.2 Long term (current) use of antibiotics
CPT/HCPCS: 36415; 70450; 71045; 80053; 81003; 84484; 85008; 85025; 93005; 99285

== ENCOUNTER 2020-07-13 19:28 | Emergency (ER) | payer MEDICARE, BC ==
[~2020-07-13] VITALS: Ht 157.5 cm; Wt 47.0 kg
[~2020-07-13 19:28] MED LIST changes: +AZIT500T9 PO
[2020-07-13] MEDS ORDERED: tranexamic acid inj. 2,000 MG in normal saline 100ml IV soln 80 ML IPL ONE (20:00)
[2020-07-13] MEDS ORDERED: tranexamic acid 100mg/ml inj. TP ONE (20:15)
[2020-07-13] MEDS ORDERED: LIDOcaine 1% w/epiNEPHrine 1:200,000 30ml vial IJ ONE (20:50)
[2020-07-13 21:42] VITALS: BP 138/69
== END 2020-07-13 21:47 | disposition home or self-care (01) ==
LOC: ER 19:29
DX: K13.79 Other lesions of oral mucosa (principal); I48.91 Unspecified atrial fibrillation; I50.9 Heart failure, unspecified; I11.0 Hypertensive heart disease with heart failure; G89.29 Other chronic pain; Z86.73 Personal history of transient ischemic attack (TIA), and cerebral infarction without residual deficits; Z90.710 Acquired absence of both cervix and uterus; Z95.0 Presence of cardiac pacemaker; Z88.8 Allergy status to other drugs, medicaments and biological substances; Z79.01 Long term (current) use of anticoagulants; Z79.899 Other long term (current) drug therapy; Z79.2 Long term (current) use of antibiotics
CPT/HCPCS: 96374; 99281; 99283

== ENCOUNTER 2020-08-11 14:06 | Emergency (ER) | payer MEDICARE, BC ==
[~2020-08-11] VITALS: Ht 152.4 cm; Wt 45.4 kg
[2020-08-11] MEDS ORDERED: normal saline 1000ML IV soln IVB ONE ×2 (14:20→16:20)
[2020-08-11 15:01] LABS: BASOPHILS % (AUTO) 0.6 % (0-1); EOSINOPHILS # (AUTO) 0.1 X10'3 (0-0.9); EOSINOPHILS % (AUTO) 0.8 % (0-6); HEMATOCRIT 35.8 % (35.0-45.0); HEMOGLOBIN 11.8 g/dl (12.0-16.0); LYMPHOCYTES % (AUTO) 14.4 % (21-51); MEAN CORPUSCULAR HEMOGLOBIN 30.7 PG (27.0-31.0); MEAN CORPUSCULAR HGB CONC 32.9 g/dL (33.0-36.5); MEAN CORPUSCULAR VOLUME 93.3 FL (78-98); MEAN PLATELET VOLUME 7.3 FL (7.4-10.4); MONOCYTES # (AUTO) 0.5 X10'3 (0-0.9); MONOCYTES % (AUTO) 7.2 % (2-12); NEUTROPHILS # (AUTO) 5.6 X10'3 (1.8-7.7); PLATELET COUNT 297 X10'3 (140-440); RED BLOOD COUNT 3.83 X10'6 (4.20-5.60); RED CELL DISTRIBUTION WIDTH 22.1 % (11.5-14.5); WHITE BLOOD COUNT 7.3 X10'3 (4.5-11.0)
[2020-08-11 15:10] LABS: ALANINE AMINOTRANSFERASE 30 U/L (12-78); ALBUMIN 3.1 G/DL (3.4-5.0); ALBUMIN/GLOBULIN RATIO 0.6 (1.1-1.5); ALKALINE PHOSPHATASE 113 IU/L (46-116); ANION GAP 6 (8-16); ASPARTATE AMINO TRANSFERASE 53 U/L (10-37); BILIRUBIN,TOTAL 0.5 MG/DL (0.1-1.0); BLOOD UREA NITROGEN 17 MG/DL (7-18); BUN/CREATININE RATIO 20.5 (6.6-38.0); CALCIUM 8.4 MG/DL (8.5-10.1); CHLORIDE 98 MMOL/L (99-107); CREATININE 0.83 MG/DL (0.40-0.90); GLUCOSE 95 MG/DL (70-104); POTASSIUM 4.3 MMOL/L (3.5-5.1); SODIUM 132 MMOL/L (135-145); TOTAL CARBON DIOXIDE 27.6 MMOL/L (24-32); TOTAL PROTEIN 7.9 G/DL (6.4-8.2); eGFR 65 ML/MIN
[2020-08-11 15:34] LABS: ANISOCYTOSIS 3+; PLATELET ESTIMATE NORMAL; ROULEAUX 1+
[2020-08-11 15:36] LABS: SCHISTOCYTES FEW
[2020-08-11] MEDS ORDERED: magnesium citrate 296ml oral solution PO ONE (16:20)
--- NOTE | 2020-08-11 16:30 | NUR ---
PATIENT WAS GIVEN MINERAL OIL ENEMA AND SOAP SUDS ENEMA WITH FAIR RESULTS OF APPROX. [address]OL[address] HARVEY NOTIFIED OF RESULTS.
--- NOTE | 2020-08-11 17:19 | NUR ---
Patient had a small amount of semi hardened stool. Patient was cleaned and attends placed. Patient given warm blanket.
--- NOTE | 2020-08-11 17:40 | NUR ---
PATIENT GETTING DRESSED FOR DC. NAUSEA WITH EMESIS OF LIGHT BROWN LIQUID. PATIENT CLEANED UP AND ASSISTED WITH GETTING DRESSED. IV REMOVED WITH TIP INTACT.
[2020-08-11 17:54] VITALS: BP 150/72
== END 2020-08-11 17:57 | disposition home or self-care (01) ==
LOC: ER 14:06
DX: K59.00 Constipation, unspecified (principal); R11.2 Nausea with vomiting, unspecified; F03.90 Unspecified dementia, unspecified severity, without behavioral disturbance, psychotic disturbance, mood disturbance, and anxiety; I48.91 Unspecified atrial fibrillation; E07.9 Disorder of thyroid, unspecified; G89.29 Other chronic pain; I11.0 Hypertensive heart disease with heart failure; I50.9 Heart failure, unspecified; Z90.710 Acquired absence of both cervix and uterus; Z95.0 Presence of cardiac pacemaker; Z86.73 Personal history of transient ischemic attack (TIA), and cerebral infarction without residual deficits; Z88.1 Allergy status to other antibiotic agents; Z88.8 Allergy status to other drugs, medicaments and biological substances; Z79.82 Long term (current) use of aspirin; Z79.2 Long term (current) use of antibiotics; Z79.899 Other long term (current) drug therapy
CPT/HCPCS: 36415; 74176; 80053; 85008; 85025; 96360; 99284; J7030

== ENCOUNTER 2021-02-15 00:12 | Inpatient (IN) | payer MEDICARE, BC ==
[~2021-02-15] VITALS: Ht 157.5 cm; Wt 61.0 kg
[~2021-02-15 00:12] MED LIST changes: -AMIO200T62 PO; +AMIO200T67 PO; -AMOX-580 PO; -APIX5TAB3 PO; -AZIT500T9 PO; +CARB1TAB37 PO; +CARB1TAB42 PO; -CLOP75TA35 PO; +LISI-790 PO; -MAGN500C16 PO
[2021-02-15 00:48] LABS: MEAN CORPUSCULAR HEMOGLOBIN 32.2 PG (27.0-31.0); MEAN CORPUSCULAR HGB CONC 32.8 g/dL (33.0-36.5)
[2021-02-15 00:50] LABS: BASOPHILS % (AUTO) 0.2 % (0-1); EOSINOPHILS # (AUTO) 0.1 X10'3 (0-0.9); EOSINOPHILS % (AUTO) 0.3 % (0-6); HEMATOCRIT 28.8 % (35.0-45.0); HEMOGLOBIN 9.4 g/dl (12.0-16.0); LYMPHOCYTES # (AUTO) 1.6 X10'3 (1.1-4.8); LYMPHOCYTES % (AUTO) 8.9 % (21-51); MEAN CORPUSCULAR VOLUME 98.3 FL (78-98); MONOCYTES # (AUTO) 1.1 X10'3 (0-0.9); MONOCYTES % (AUTO) 6.4 % (2-12); NEUTROPHILS # (AUTO) 15.1 X10'3 (1.8-7.7); NEUTROPHILS % (AUTO) 84.2 % (42-75); PLATELET COUNT 303 X10'3 (140-440); RED BLOOD COUNT 2.93 X10'6 (4.20-5.60); RED CELL DISTRIBUTION WIDTH 13.9 % (11.5-14.5); WHITE BLOOD COUNT 17.9 X10'3 (4.5-11.0)
[2021-02-15 01:00] LABS: ALANINE AMINOTRANSFERASE 6 U/L (12-78); ALBUMIN 2.7 G/DL (3.4-5.0); ALBUMIN/GLOBULIN RATIO 0.6 (1.1-1.5); ALKALINE PHOSPHATASE 80 IU/L (46-116); ANION GAP 8 (8-16); ASPARTATE AMINO TRANSFERASE 27 U/L (10-37); BILIRUBIN,TOTAL 0.4 MG/DL (0.1-1.0); BLOOD UREA NITROGEN 17 MG/DL (7-18); CALCIUM 8.5 MG/DL (8.5-10.1); CHLORIDE 99 MMOL/L (99-107); CREATININE 0.81 MG/DL (0.40-0.90); GLUCOSE 96 MG/DL (70-104); POTASSIUM 3.6 MMOL/L (3.5-5.1); SODIUM 135 MMOL/L (135-145); TOTAL CARBON DIOXIDE 28.1 MMOL/L (24-32); TOTAL PROTEIN 7.2 G/DL (6.4-8.2); eGFR 67 ML/MIN
[2021-02-15] MEDS ORDERED: iohexol 300mg/ml 100ml inj. ONE (01:23)
--- NOTE | 2021-02-15 01:46 | NUR ---
Daughter Joy number is [phone] and she is staying local in [facility].
[2021-02-15 03:11] LABS: COLOR,URINE YELLOW (Yellow); GLUCOSE, URINE NEGATIVE (Neg); KETONES,URINE TRACE mg/dl (Neg); LEUKOCYTE ESTERASE ,URINE TRACE (Neg); NITRITES, URINE NEGATIVE (Neg); OCCULT BLOOD,URINE NEGATIVE (Neg); PH,URINE 5.5 (4.8-8.0); PROTEIN,URINE NEGATIVE (Neg); UROBILINOGEN,URINE 0.2 E.U/dL (0.2-1.0)
[2021-02-15 03:34] LABS: CLARITY,URINE SLIGHTLY CLOUDY (Clear); UA COLLECTION TYPE STRAIGHT CATH
[2021-02-15 03:35] LABS: BACTERIA,URINE FEW /HPF (Neg); MUCUS STRANDS MANY /LPF (Neg); RBC,URINE 0-2 /HPF (0-2); SQUAMOUS EPITHELIAL CELL,UR NONE SEEN /LPF (FEW)
[2021-02-15 03:36] LABS: HYALINE CASTS 0-3 /LPF (NEGATIVE)
[2021-02-15] MEDS ORDERED: piperacillin/tazo 3.375gm/50ml 50 ML IV ONE (03:40)
[2021-02-15] MEDS ORDERED: metroNIDAZOLE-Flagyl 500mg/NS 100 ML IV ONE (03:40)
[2021-02-15] MEDS ORDERED: diphenhydrAMINE 50 mg/ml inj IV PRN (04:30)
[2021-02-15] MEDS ORDERED: bisacodyl 10mg suppository rectal RC PRN (04:30)
[2021-02-15] MEDS ORDERED: diphenhydrAMINE 25mg capsule PO PRN (04:30)
[2021-02-15] MEDS ORDERED: ondansetron/PF 4mg/2ml inj IV PRN (04:30)
[2021-02-15] MEDS ORDERED: ondansetron 4mg rapidly disintigrating tab PO PRN (04:30)
[2021-02-15] MEDS ORDERED: morphine 2 MG/ML inj. syringe IV PRN ×2 (04:30)
[2021-02-15] MEDS ORDERED: HYDROcodone/acetaminophen 5mg/325mg tablet PO PRN (04:30)
[2021-02-15] MEDS ORDERED: acetaminophen 650mg rectal suppository RC PRN (04:30)
[2021-02-15] MEDS ORDERED: magnesium hydroxide 30ml (MOM) UD suspension PO PRN (04:30)
[2021-02-15] MEDS ORDERED: acetaminophen 325mg tablet PO PRN (04:30)
[2021-02-15] MEDS ORDERED: mag hydrox/Alum hydrox/simeth 30ml oral suspension PO PRN (04:30)
[2021-02-15] MEDS ORDERED: magnesium citrate 296ml oral solution PO ONE (04:45)
[2021-02-15] MEDS: normal saline 1000ml 1,000 ML IV SCH ×2 (04:50→15:07)
[2021-02-15 05:26] LABS: LIPASE 77 U/L (73-393); PHOSPHORUS 2.6 MG/DL (2.3-4.5)
--- NOTE | 2021-02-15 07:21 | NUR ---
PT CONTINUES TO TRY TO GET OUT OF BED AND LEAVE. STATING THAT HER DAUGHTER IS WAITING FOR HER DOWN STAIRS AT THE BUSINESS OFFICE. PT IS CONFUSED, WEAK AND ATTEMPTS TO FIGHT STAFF WHEN PLACING PT BACK INTO BED. ORDER OF NON-BEHAVIORAL RESTRAINTS OBTAINED AND APPLIED TO PT'S LT WRIST AND RT ANKLE Addendum: 02/15/21 at 0726 by GABO PT WAS ABLE TO REMOVE THE RESTRAINT OF HER LT WRIST, RESTRAINT WAS REAPPLIED AND THE RT ANKLE RESTRAINT WAS REMOVED AND PLACED ON PT'S RT WRIST AND BED PLACED IN [place]
[2021-02-15 09:03] LABS: PARTIAL THROMBOPLASTIN TIME 28 SECONDS (22-32)
[2021-02-15] MEDS: docusate sod 100mg capsule PO SCH ×2 (10:58→19:32)
[2021-02-15] MEDS: metroNIDAZOLE-Flagyl 250mg/NS 50 ML IV SCH ×2 (10:58→19:33)
[2021-02-15] MEDS: piperacillin/tazo 4.5gm/100ml 100 ML IV SCH ×2 (10:58→21:16)
[2021-02-15] MEDS: pantoprazole 40 MG vial IV SCH (10:58)
--- NOTE | 2021-02-15 12:38 | NUR ---
Patient in room PCU 3015. I have received report from Chas WIGGINS and had the opportunity to ask questions and assume patient care.
[2021-02-15 12:56] VITALS: BP 117/45
[2021-02-15 15:00] VITALS: BP 95/47
--- NOTE | 2021-02-15 15:06 | NUR ---
PAGER ID: [phone] MESSAGE: Alina Dalton room 3015B's diet order is NPO. Do you want to continue NPO status or place a diet order? Please advise. Hyun WIGGINS ext [phone]
--- NOTE | 2021-02-15 17:13 | NUR ---
PAGER ID: [phone] MESSAGE: patient Alina Dalton has no diet order. Please advise Hyun ext [phone]
[2021-02-15 18:00] VITALS: BP 123/48
--- NOTE | 2021-02-15 18:18 | NUR ---
Problems reprioritized. Patient report given, questions answered & plan of care reviewed with Alexandre WIGGINS.
--- NOTE | 2021-02-15 18:25 | NUR ---
Patient in room PCU 3015. I have received report from ROSALIE MCKEON and had the opportunity to ask questions and assume patient care.
[2021-02-15] MEDS: lactobacillus rhamnosus 10,000 MMU CELLS/CAPSULE PO SCH (19:32)
[2021-02-16] MEDS: normal saline 1000ml 1,000 ML IV SCH ×3 (00:30→07:33)
[2021-02-16 02:00] VITALS: BP 129/61
--- NOTE | 2021-02-16 06:07 | NUR ---
Problems reprioritized. Patient report given, questions answered & plan of care reviewed with ROSALIE URIBE.
[2021-02-16 06:43] VITALS: BP 146/53
[2021-02-16 06:54] LABS: BASOPHILS % (AUTO) 0.5 % (0-1); EOSINOPHILS # (AUTO) 0.2 X10'3 (0-0.9); EOSINOPHILS % (AUTO) 2.5 % (0-6); HEMATOCRIT 27.7 % (35.0-45.0); HEMOGLOBIN 9.2 g/dl (12.0-16.0); LYMPHOCYTES # (AUTO) 1.3 X10'3 (1.1-4.8); LYMPHOCYTES % (AUTO) 14.2 % (21-51); MEAN CORPUSCULAR HEMOGLOBIN 32.2 PG (27.0-31.0); MEAN CORPUSCULAR HGB CONC 33.3 g/dL (33.0-36.5); MEAN CORPUSCULAR VOLUME 96.6 FL (78-98); MONOCYTES # (AUTO) 0.5 X10'3 (0-0.9); MONOCYTES % (AUTO) 5.6 % (2-12); NEUTROPHILS % (AUTO) 77.2 % (42-75); PLATELET COUNT 334 X10'3 (140-440); RED BLOOD COUNT 2.87 X10'6 (4.20-5.60)
[2021-02-16 07:33] LABS: ALANINE AMINOTRANSFERASE 23 U/L (12-78); ALBUMIN 2.4 G/DL (3.4-5.0); ALBUMIN/GLOBULIN RATIO 0.6 (1.1-1.5); ALKALINE PHOSPHATASE 61 IU/L (46-116); ANION GAP 9 (8-16); ASPARTATE AMINO TRANSFERASE 30 U/L (10-37); BILIRUBIN,TOTAL 0.3 MG/DL (0.1-1.0); BLOOD UREA NITROGEN 12 MG/DL (7-18); BUN/CREATININE RATIO 17.6 (6.6-38.0); CALCIUM 7.9 MG/DL (8.5-10.1); CHLORIDE 103 MMOL/L (99-107); CREATININE 0.68 MG/DL (0.40-0.90); GLUCOSE 83 MG/DL (70-104); POTASSIUM 3.4 MMOL/L (3.5-5.1); SODIUM 138 MMOL/L (135-145); TOTAL CARBON DIOXIDE 26.3 MMOL/L (24-32); TOTAL PROTEIN 6.7 G/DL (6.4-8.2); eGFR 82 ML/MIN
[2021-02-16] MEDS: lactobacillus rhamnosus 10,000 MMU CELLS/CAPSULE PO SCH ×2 (07:33→20:37)
[2021-02-16] MEDS: piperacillin/tazo 4.5gm/100ml 100 ML IV SCH ×2 (07:33→20:37)
[2021-02-16] MEDS: metroNIDAZOLE-Flagyl 250mg/NS 50 ML IV SCH (07:33)
[2021-02-16] MEDS: docusate sod 100mg capsule PO SCH ×2 (07:33→20:38)
[2021-02-16] MEDS: pantoprazole 40 MG vial IV SCH (07:33)
[2021-02-16] MEDS ORDERED: potassium Cl 20 mEq SR tablet PO PRN (10:30)
[2021-02-16] MEDS ORDERED: magnesium 4gm in 100ml NS 100 ML IV PRN (10:30)
[2021-02-16] MEDS ORDERED: potassium Cl 40MEQ/1/2NS 520ml 520 ML IV PRN (10:30)
[2021-02-16] MEDS ORDERED: magnesium Cl slow-release 64mg tablet PO PRN (10:30)
[2021-02-16] MEDS: potassium Cl 20 mEq SR tablet PO PRN ×2 (11:45→16:10)
[2021-02-16 11:50] VITALS: BP 120/91
[2021-02-16 11:59] LABS: OCCULT BLOOD STOOL POSITIVE (Neg)
[2021-02-16 15:28] LABS: C DIFF ANTIGEN NEGATIVE (NEGATIVE); C DIFF SPECIMEN=DIARRHEA? ACCEPTABLE; C DIFFICILE TOXINS A&B NEGATIVE (Neg)
[2021-02-16 15:36] VITALS: BP 130/51
--- NOTE | 2021-02-16 16:45 | NUR ---
PAGER ID: [phone] MESSAGE: PATIENT KARINA TUTTLE HER 24 HOUR TELE ORDER DO YOU WANT TO RENEW.
[2021-02-16 19:00] VITALS: BP 156/62
[2021-02-16] MEDS: K and/or MAG REPLACEMENT MC SCH (20:00)
[2021-02-16] MEDS: metroNIDAZOLE 500mg tablet PO SCH (20:38)
[2021-02-16 23:00] VITALS: BP 150/58
[2021-02-17 03:00] VITALS: BP 130/62
[2021-02-17] MEDS: normal saline 1000ml 1,000 ML IV SCH (06:30)
--- NOTE | 2021-02-17 06:39 | NUR ---
Patient in room PCU 3015. I have received report from Mayuri WIGGINS and had the opportunity to ask questions and assume patient care.
[2021-02-17 07:00] VITALS: BP 145/66
[2021-02-17 07:29] LABS: BASOPHILS # (AUTO) 0.1 X10'3 (0-0.2); BASOPHILS % (AUTO) 0.8 % (0-1); EOSINOPHILS # (AUTO) 0.2 X10'3 (0-0.9); EOSINOPHILS % (AUTO) 2.8 % (0-6); HEMATOCRIT 28.2 % (35.0-45.0); HEMOGLOBIN 9.5 g/dl (12.0-16.0); LYMPHOCYTES # (AUTO) 1.4 X10'3 (1.1-4.8); LYMPHOCYTES % (AUTO) 17.9 % (21-51); MEAN CORPUSCULAR HEMOGLOBIN 32.7 PG (27.0-31.0); MEAN CORPUSCULAR HGB CONC 33.6 g/dL (33.0-36.5); MEAN CORPUSCULAR VOLUME 97.5 FL (78-98); MEAN PLATELET VOLUME 6.8 FL (7.4-10.4); MONOCYTES # (AUTO) 0.6 X10'3 (0-0.9); MONOCYTES % (AUTO) 7.6 % (2-12); NEUTROPHILS # (AUTO) 5.5 X10'3 (1.8-7.7); NEUTROPHILS % (AUTO) 70.9 % (42-75); PLATELET COUNT 407 X10'3 (140-440); RED BLOOD COUNT 2.89 X10'6 (4.20-5.60); RED CELL DISTRIBUTION WIDTH 13.9 % (11.5-14.5); WHITE BLOOD COUNT 7.7 X10'3 (4.5-11.0)
[2021-02-17] MEDS ORDERED: pantoprazole 40mg Tablet.DR PO SCH (07:30)
[2021-02-17 07:40] LABS: ALANINE AMINOTRANSFERASE 26 U/L (12-78); ALBUMIN 2.5 G/DL (3.4-5.0); ALBUMIN/GLOBULIN RATIO 0.6 (1.1-1.5); ALKALINE PHOSPHATASE 62 IU/L (46-116); ANION GAP 10 (8-16); ASPARTATE AMINO TRANSFERASE 31 U/L (10-37); BILIRUBIN,TOTAL 0.3 MG/DL (0.1-1.0); BLOOD UREA NITROGEN 9 MG/DL (7-18); BUN/CREATININE RATIO 11.8 (6.6-38.0); CALCIUM 8.1 MG/DL (8.5-10.1); CHLORIDE 104 MMOL/L (99-107); CREATININE 0.76 MG/DL (0.40-0.90); GLUCOSE 88 MG/DL (70-104); MAGNESIUM 2.2 MG/DL (1.5-2.4); POTASSIUM 3.9 MMOL/L (3.5-5.1); SODIUM 140 MMOL/L (135-145); TOTAL CARBON DIOXIDE 26.5 MMOL/L (24-32); TOTAL PROTEIN 6.9 G/DL (6.4-8.2); eGFR 72 ML/MIN
[2021-02-17] MEDS: docusate sod 100mg capsule PO SCH (08:00)
[2021-02-17] MEDS: K and/or MAG REPLACEMENT MC SCH (08:00)
--- NOTE | 2021-02-17 08:40 | NUR ---
Patient in room PCU 3015. I have received report from Mayuri Marino and had the opportunity to ask questions and assume patient care.
[2021-02-17] MEDS: metroNIDAZOLE 500mg tablet PO SCH (08:47)
[2021-02-17] MEDS: lactobacillus rhamnosus 10,000 MMU CELLS/CAPSULE PO SCH (08:47)
[2021-02-17] MEDS: piperacillin/tazo 4.5gm/100ml 100 ML IV SCH (08:47)
[2021-02-17 11:00] VITALS: BP 126/48
--- NOTE | 2021-02-17 15:07 | NUR ---
Pt stable for transfer per MD order, all discharge instructions reviewed with patient and all questions answered. Report called to ROSALIE Sierra at [facility]. PIV discontinued, cannula intact. Telemetry discontinued, telegraph equipment maintainer notified. All belongings collected and sent with patient. Pt picked up in ambulance by ambulance staff, wheeled out by yuval.
== END 2021-02-17 14:55 | DRG 871 ==
LOC: ER 00:12 → ED HOLD 04:30 → PCU 3S 12:34
PROVIDERS: ADMIT Family Medicine; ATTEND Family Medicine
PROC: BW251ZZ Computerized Tomography (CT Scan) of Chest, Abdomen and Pelvis using Low Osmolar Contrast (ICD-10-PCS; principal; 2021-02-15)
DX: A41.9 Sepsis, unspecified organism (principal); K62.89 Other specified diseases of anus and rectum; I50.23 Acute on chronic systolic (congestive) heart failure; N39.0 Urinary tract infection, site not specified; K92.1 Melena; D64.9 Anemia, unspecified; E03.9 Hypothyroidism, unspecified; E78.5 Hyperlipidemia, unspecified; G89.29 Other chronic pain; I11.0 Hypertensive heart disease with heart failure; K21.9 Gastro-esophageal reflux disease without esophagitis; I48.91 Unspecified atrial fibrillation; M54.9 Dorsalgia, unspecified; R19.7 Diarrhea, unspecified; K59.00 Constipation, unspecified; Z79.01 Long term (current) use of anticoagulants; Z86.73 Personal history of transient ischemic attack (TIA), and cerebral infarction without residual deficits; Z87.891 Personal history of nicotine dependence; Z90.710 Acquired absence of both cervix and uterus; Z95.0 Presence of cardiac pacemaker; Z88.8 Allergy status to other drugs, medicaments and biological substances; Z80.41 Family history of malignant neoplasm of ovary; Z79.899 Other long term (current) drug therapy; Z79.82 Long term (current) use of aspirin
CPT/HCPCS: 36415; 70450; 71045; 71260; 74177; 80053; 81001; 82272; 83605; 83690; 83735; 83880; 84100; 84145; 84484; 85025; 85610; 85730; 87045; 87046; 87077; 87081; 87088; 87324; 87449; 93005; 97110; 97116; 97162; 97530; 99285; C9113; G0378; J2543; J3490; J7030; Q9967

== ENCOUNTER 2022-07-18 14:06 | Emergency (ER) | payer BC, MEDICARE ==
[~2022-07-18] VITALS: Ht 157.5 cm; Wt 44.5 kg
[~2022-07-18 14:06] MED LIST changes: -LISI-790 PO; +LISI5TAB22 PO
[2022-07-18 14:14] VITALS: BP 119/60
[2022-07-18] MEDS ORDERED: mineral oil 133ml enema RC PRN (16:25)
== END 2022-07-18 17:16 | disposition home or self-care (01) ==
LOC: ER 14:07
DX: K56.41 Fecal impaction (principal); R21 Rash and other nonspecific skin eruption; I11.9 Hypertensive heart disease without heart failure; J44.9 Chronic obstructive pulmonary disease, unspecified; K21.9 Gastro-esophageal reflux disease without esophagitis; G89.29 Other chronic pain; M54.9 Dorsalgia, unspecified; Z88.8 Allergy status to other drugs, medicaments and biological substances; Z88.1 Allergy status to other antibiotic agents; Z88.6 Allergy status to analgesic agent; Z79.899 Other long term (current) drug therapy; Z79.82 Long term (current) use of aspirin; Z79.84 Long term (current) use of oral hypoglycemic drugs; Z90.49 Acquired absence of other specified parts of digestive tract
CPT/HCPCS: 99282; 99284